=== PATIENT | male | born 1975 | race Caucasian/White ===

== ENCOUNTER 2017-11-19 17:19 | Emergency (ER) | payer SELFPAY ==
[2017-11-19] MEDS ORDERED: Bacitracin Zinc 1 Packet ONE (17:52)
== END 2017-11-19 17:54 | disposition home or self-care (01) ==
LOC: ERS 17:19
DX: L73.9 Follicular disorder, unspecified (principal); F17.220 Nicotine dependence, chewing tobacco, uncomplicated; Z71.6 Tobacco abuse counseling
CPT/HCPCS: 99406

== ENCOUNTER 2018-01-18 13:48 | Emergency (ER) | payer SELFPAY ==
[2018-01-18] MEDS ORDERED: HYDROcodone/Acetaminophen 5/325 mg Tablet ONE (14:21)
[2018-01-18] MEDS ORDERED: Cyclobenzaprine 10 MG TAB ONE (14:21)
== END 2018-01-18 14:32 | disposition home or self-care (01) ==
LOC: ERS 13:48
DX: M79.605 Pain in left leg (principal); F17.220 Nicotine dependence, chewing tobacco, uncomplicated; Z71.6 Tobacco abuse counseling
CPT/HCPCS: 99406

== ENCOUNTER 2018-07-07 12:30 | Emergency (ER) | payer SELFPAY ==
[2018-07-07] MEDS ORDERED: Ibuprofen 800 MG TAB ONE (13:36)
--- NOTE | 2018-07-07 14:49 | RAD ---
CHEST 2 VIEWS: HISTORY: Body aches and cough. Congestion. COMPARISON: None. FINDINGS: Normal cardiac silhouette. The pulmonary vessels and hilum are normal. Costophrenic angles are doreen r. No consolidation or mass. No pneumothorax or osseous abnormalities. IMPRESSION: No acute cardiopulmonary process. POS: [facility]
== END 2018-07-07 14:47 | disposition home or self-care (01) ==
LOC: ERS 12:30
DX: J40 Bronchitis, not specified as acute or chronic (principal); J06.9 Acute upper respiratory infection, unspecified; F17.220 Nicotine dependence, chewing tobacco, uncomplicated
CPT/HCPCS: 71046; 87804

== ENCOUNTER 2022-04-20 15:00 | Emergency (ER) | payer SELFPAY ==
[2022-04-20] MEDS ORDERED: HYDROcodone/Acetaminophen 10/325 mg Tablet ONE (17:08)
[2022-04-20] MEDS ORDERED: HYDROcodone/Acetaminophen 5/325 mg Tablet ONE (17:51)
[2022-04-20] MEDS ORDERED: Ketorolac Tromethamine 30 MG/ML VIAL ONE (18:52)
== END 2022-04-20 20:00 | disposition home or self-care (01) ==
LOC: ERS 15:00
DX: R07.89 Other chest pain (principal); F17.290 Nicotine dependence, other tobacco product, uncomplicated
CPT/HCPCS: 71046; 93005; 96372; J1885

== ENCOUNTER 2022-09-26 17:26 | Emergency (ER) | payer SELFPAY ==
[2022-09-26] MEDS ORDERED: Ibuprofen 200 MG TAB ONE (18:08)
== END 2022-09-26 18:37 | disposition home or self-care (01) ==
LOC: ERS 17:26
DX: M79.641 Pain in right hand (principal); F17.290 Nicotine dependence, other tobacco product, uncomplicated

== ENCOUNTER 2022-12-24 17:28 | Emergency (ER) | payer SELFPAY ==
[2022-12-24] MEDS ORDERED: Ondansetron PF 4 MG/2 ML Vial ONE (18:07)
[2022-12-24 18:24] LABS: #Eosinphils 0.1 thou/uL (0.0-0.7); #Lymphocytes 1.4 thou/uL (1.20-3.40); #Monocytes 0.6 thou/uL (0.11-0.59); #Neutrophils 10.7 thou/uL (1.40-6.50); %Eosinophils 1.1 % (0.0-10.0); %Lymphocytes 10.6 % (21.0-51.0); %Monocytes 4.7 % (0.0-10.0); %Neutrophils 83.6 % (42.0-75.0); Hemoglobin 17.8 g/dL (14.0-18.0); Mean Corpuscular HGB CONC 34.9 g/dL (32.0-36.0); Mean Corpuscular Volume 91.7 fl (78.0-98.0); Mean Platelet Volume 7.5 fL (7.4-10.4); Platelet Count 250 10x3/uL (130-400); RBC Distribution Width 11.5 % (11.5-14.5); Red Blood Cell (RBC) Count 5.57 mill/uL (4.70-6.10); White Blood Cell (WBC) Count 12.8 10x3/uL (4.8-10.8)
[2022-12-24 18:44] LABS: ALT (SGPT) 7 U/L (8-55); AST (SGOT) 10 U/L (5-34); Albumin 4.7 g/dL (3.5-5.0); Alkaline Phosphatase 86 U/L (40-110); Anion Gap 19 mmol/L (10-20); BUN (Urea Nitrogen) 7 mg/dL (8.9-20.6); Calc. Creatinine Clearance 0 mL/min (70-130); Calcium 10.3 mg/dL (7.8-10.44); Carbon Dioxide 22 mmol/L (22-29); Chloride 103 mmol/L (98-107); Estimated GFR 105; Globulin 3.5 g/dL (2.4-3.5); Glucose 151 mg/dL (70-105); Lipase 21 U/L (8-78); Potassium 3.6 mmol/L (3.5-5.1); Protein, Total 8.2 g/dL (6.0-8.3); Sodium 140 mmol/L (136-145)
[2022-12-24] MEDS ORDERED: cefTRIAXone (ROCEPHIN) 1 GM VIAL ONE (18:45)
[2022-12-24] MEDS ORDERED: Cefepime 2 GM VIAL ONE (19:07)
== END 2022-12-24 20:02 | disposition home or self-care (01) ==
LOC: ERS 17:28
DX: A08.4 Viral intestinal infection, unspecified (principal); D72.829 Elevated white blood cell count, unspecified; F17.210 Nicotine dependence, cigarettes, uncomplicated
CPT/HCPCS: 36415; 71045; 80053; 83605; 83690; 84484; 85025; 87040; 96361; 96365; 96367; 96375; J0692; J0696; J2405